=== PATIENT | female | born 1975 | race Caucasian/White ===

== ENCOUNTER 2016-10-28 10:11 | Emergency (ER) | payer OTHER ==
[~2016-10-28] VITALS: Ht 175.3 cm; Wt 88.5 kg
[~2016-10-28 10:11] MED LIST: AMOXICILLIN500 MG PO; CEFDINIR300 M1 PO; CHOLESTYRAM4 GM/9 GM; DOXYCYCLINE HY100 M2 PO; LEVAQUIN750 MG PO; LEVSIN/SL0.125 MG; MEDROL DOSEPAK1 PAC PO; PERCOCET 325 MG1 TA2 PO; PREGNENOLONE5 GM PO; PROTONIX 40MG T40 MG; PROVENTIL0.09 MG/A1 INH; TESSALON PERLE100 MG PO; ULTRAM(MONOGRAP50 MG PO; VIBRAMYCIN100 MG PO; VITAMIN B-121000 MC2 SL; VITAMIN D31000 UNI1 PO; ZITHROMAX Z-PA250 M1 PO; ZOFRAN4 M1 SL
[2016-10-28 10:18] VITALS: BP 126/76
--- NOTE | 2016-10-28 11:10 | ED NECK/BACK PAIN COMPLAINT ---
History of Present Illness General Chief Complaint: Low Back Pain/Injury Stated Complaint: LOW BACK PAIN Source: patient Exam Limitations: no limitations Vital Signs & Intake/Output Vital Signs & Intake/Output Vital Signs Date Time Temp Pulse Resp B/P Pulse O2 O2 Flow FiO2 Ox Delivery Rate 10/28 1018 95.8 59 18 126/76 95 Room Air Allergies Coded Allergies: shellfish derived (RASH, SOB, LIGHT HEADED, ITCHY, DIZZY 06/23/16) Uncoded Allergies: ?ANTIBIOTIC (10/05/14) Reconcile Medications Cyclobenzaprine HCl 10 MG TABLET 1 TAB PO QPM PRN muscle spasms Hydrocodone/Acetaminophen ([place] 5-325 Tablet) 5 MG-325 MG TABLET 1-2 TAB PO Q4-6 PRN PRN pain Methylprednisolone. (Medrol) 4 MG TAB.DS.PK 1 DP PO AD back pain 6 on day 1 then reduce by one tablet daily until gone Naltrexone HCl 50 MG TABLET 1 TAB PO QPM UNKNOWN (Reported) Triage Note: C/O LOW BACK PAIN SINCE YESTERDAY. DENIES FALL OR INJURY, STATES PAIN RADIATES TO R ABDOMEN. RECENT UTI (2 WEEKS AGO). Triage Nurses Notes Reviewed? yes Onset: Gradual Duration: day(s): (2) Timing: recent history Quality/Severity: moderate Location: paraspinous muscles Radiation: none : No Patient currently breastfeeds: No HPI: Patient is a 41-year-old female presenting to the emergency department with chief complaint of low back pain has been going on for the past 2 days. She thinks that she routinely gets low back pain associated with her menstrual cycle. Pain is worse with movement. Denies any fevers or chills. She reports that the pain got so bad last night that she had an episode of nausea but no vomiting. The pain radiated around to her right hip. Denies any urinary frequency urgency or dysuria. No hematuria. She reports that she was recently treated for UTI. Denies trauma. No heavy lifting. She does have history of Lyme disease for which she takes on and off doxycycline. Denies any weakness or numbness or tingling. (LILI GUZMAN) Past History Travel History Traveled to [place] past 21 day No Medical History Any Pertinent Medical History? 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 No (LILI GUZMAN) Review of Systems Review of Systems Constitutional: Reports: no symptoms. Comments Review of systems: See HPI, All other systems negative. Constitutional, no chills fever or weight loss HEENT: No visual changes no sore throat no congestion Cardiovascular: No chest pain Skin, no jaundice no rashes Respiratory: No dyspnea cough sputum or hemoptysis GI: No nausea no vomiting : No dysuria No hematuria Muscle skeletal: no neck pain, Neurologic: No numbness no confusion Psych: No stress Immunology: No splenectomy or history of AIDS (LILI GUZMAN) Physical Exam Physical Exam General Appearance: well developed/nourished, no apparent distress, alert, awake , comfortable Neck: normal inspection, supple Comments: Well-developed well-nourished person in no acute distress HEENT: Pupils equally round and reactive to light and accommodation. Nose is atraumatic. Neck: Full range of motion, no C-spine tenderness. Back: Tender to palpation in the lumbar paraspinal muscles., Negative modified straight leg raise bilaterally. No CVA tenderness. Limited range of motion secondary to pain. Cardiovascular: Regular rate and rhythms no murmurs rubs or gallops, normal JVP Respiratory: Chest nontender. No respiratory distress.breath sounds clear to auscultation bilaterally Abdomen: Soft, nontender nondistended, no appreciable organomegaly. Normal bowel sounds. No ascites Extremity: No edema, no calf tenderness to palpation, normal and equal pulses. Neuro: Alert oriented x3, motor sensory normal, patellar reflexes are 2+ bilaterally. Skin: No appreciable rash on exposed skin, skin is warm and dry. Psych: Mood and affect is normal, memory and judgment is normal. (LILI GUZMAN) Progress Differential Diagnosis: muscle strain, contusion, kidney stone, pyelonephritis, hydronephrosis, UTI Plan of Care: Orders Procedure Date/time Status URINE 10/28 1110 Complete URINALYSIS 10/28 1110 Complete Laboratory Tests 10/28/16 1232: Urinalysis MOD H, Urine Color YEL, Urine Clarity CLEAR, Urine pH 7.5, Ur Specific [place] 1.010, Urine Protein NEG, Urine Ketones NEG, Urine Nitrite NEG, Urine Bilirubin NEG, Urine Urobilinogen 0.2, Ur Leukocyte Esterase NEG, Ur Microscopic SEDIMENT EXAMINED, Urine RBC 1-3, Urine WBC 3-5 H, Ur Epithelial Cells MOD H, Urine Bacteria MOD H, Urine Hemoglobin MOD H, Urine Glucose NEG, Urine Test NEGATIVE Comments: Pain is worse with movement and palpation. Urinalysis is negative. Patient currently on menstrual period. I do not think this patient has a kidney stone. Patient has some relief with Vicodin. She was sent with Medrol Dosepak, Vicodin and cyclobenzaprine. (LILI GUZMAN) Departure Departure Time of Disposition: 1309 Disposition: HOME OR SELF CARE Condition: Stable Clinical Impression Primary Impression: Back pain Qualifiers: Back pain location: low back pain Chronicity: unspecified Back pain laterality: bilateral Sciatica presence: unspecified whether sciatica present Qualified Code: M54.5 - Low back pain Referrals: KRISTIE LINDO,KACEY Gruber (PCP/Family) Additional Instructions: Follow-up with her primary care physician called me appointment. Take Flexeril and Vicodin as prescribed for pain. Apply warm compresses. Return for worsening symptoms or concerns. Departure Forms: Customer Survey General Discharge Information Prescriptions: Current Visit Scripts Cyclobenzaprine HCl 1 TAB PO QPM PRN muscle spasms #10 TAB Methylprednisolone. (Medrol) 1 DP PO AD #1 DP 6 on day 1 then reduce by one tablet daily until gone Hydrocodone/Acetaminophen ([place] 5-325 Tablet) 1-2 TAB PO Q4-6 PRN PRN pain #10 TAB (LILI GUZMAN) PA/MORTGAGE LOAN CLOSER Co-Sign Statement Statement: ED Attending supervision documentation- [] I saw and evaluated the patient. I have also reviewed all the pertinent lab results and diagnostic results. I agree with the findings and the plan of care as documented in the PA's/MORTGAGE LOAN CLOSER's documentation. [x] I have reviewed the ED Record and agree with the PA's/MORTGAGE LOAN CLOSER's documentation. [] Additions or exceptions (if any) to the PAs/MORTGAGE LOAN CLOSER's note and plan are summarized below: [] (GRADY GALINDO DO)
[2016-10-28] MEDS ORDERED: NALTREXONE HCL50 M1 PO (11:27)
[2016-10-28] MEDS ORDERED: CYCLOBENZAPRINE10 M1 PO (13:27)
[2016-10-28] MEDS ORDERED: NORCO 5-325 TA1 EACH PO (13:27)
[2016-10-28] MEDS ORDERED: MEDROL4 M2 PO (13:27)
== END 2016-10-28 13:40 ==
LOC: ERH 10:11
DX: M54.5 Low back pain (principal)
CPT/HCPCS: 81001; 81025; 96372; J1885; J3360